=== PATIENT | female | born 1980 | race Hispanic/Latino ===

== ENCOUNTER 2021-11-01 22:56 | Inpatient (IN) | payer MEDICAID, SELFPAY ==
[2021-11-01] MEDS ORDERED: Morphine 4 MG/ML VIAL ONE (23:47)
[2021-11-01] MEDS ORDERED: Ondansetron PF 4 MG/2 ML Vial ONE (23:47)
[2021-11-01 23:54] LABS: #Basophils 0.1 thou/uL (0.0-0.2); #Eosinphils 0.2 thou/uL (0.0-0.7); %Basophils 0.8 % (0.0-1.0); %Eosinophils 1.2 % (0.0-10.0); %Lymphocytes 14.9 % (21.0-51.0); %Monocytes 7.8 % (0.0-10.0); %Neutrophils 75.3 % (42.0-75.0); Hemoglobin 14.1 g/dL (12.0-16.0); Mean Corpuscular HGB CONC 32.3 g/dL (32.0-36.0); Mean Corpuscular Hemoglobin 29.1 pg (27.0-31.0); Mean Corpuscular Volume 89.9 fL (78.0-98.0); Mean Platelet Volume 7.4 fL (7.4-10.4); Platelet Count 337 thou/uL (130-400); RBC Distribution Width 13.3 % (11.5-14.5); Red Blood Cell (RBC) Count 4.86 mill/uL (4.20-5.40); White Blood Cell (WBC) Count 13.2 thou/uL (4.8-10.8)
[2021-11-02 00:01] LABS: Pregnancy Test - Urine (BHCG) Negative (Negative); Pregu Control Background? CLEAR/WHITE (CLR/WHITE); Pregu Control Bar Appear? YES (CONTROL BAR); Specific Gravity 1.016 (1.002-1.036)
[2021-11-02 00:11] LABS: Bilirubin 1+ (Negative); Blood, Urine Negative (Negative); Clarity Turbid (Clear); Glucose, Urine (Dipstick) Normal (Negative); Ketone, Urine Negative (Negative); Leukocyte 500 Leu/uL (Negative); Nitrite Negative (Negative); Protein, Urine (Dipstick) 10 mg/dL (Neg-Trace); RBC/HPF 0-3 HPF (0-3); Specific Gravity, Urine 1.017 (1.002-1.036); WBC/HPF 21-50 HPF (0-3); pH, Urine 5.5 (5.0-9.0)
[2021-11-02 00:12] LABS: Bacteria/HPF 1+ HPF (None Seen)
[2021-11-02 00:28] LABS: BHCG - Serum Negative (NEGATIVE); Pregs Control Background? CLEAR/WHITE (CLR/WHITE); Pregs Control Bar Appear? YES (CONTROL BAR)
[2021-11-02] MEDS ORDERED: cefTRIAXone\\ROCEPHIN 1 GM VIAL ONE (00:38)
[2021-11-02 00:40] LABS: ALT (SGPT) 1390 U/L (8-55); AST (SGOT) 321 U/L (5-34); Alkaline Phosphatase 224 U/L (40-110); Anion Gap 14 mmol/L (10-20); BUN (Urea Nitrogen) 8 mg/dL (7.0-18.7); Bilirubin, Total 3.4 mg/dL (0.2-1.2); Calc. Creatinine Clearance 0 mL/min (70-130); Calcium 9.9 mg/dL (7.8-10.44); Carbon Dioxide 26 mmol/L (22-29); Chloride 103 mmol/L (98-107); Globulin 3.7 g/dL (2.4-3.5); Glucose 181 mg/dL (70-105); Potassium 3.5 mmol/L (3.5-5.1); Protein, Total 7.7 g/dL (6.0-8.3); Sodium 139 mmol/L (136-145)
[2021-11-02 01:07] LABS: Lipase 14381 U/L (8-78)
[2021-11-02] MEDS ORDERED: Morphine 4 MG/ML VIAL ONE (01:17)
[2021-11-02] MEDS ORDERED: Ondansetron PF 4 MG/2 ML Vial ONE (01:18)
[2021-11-02] MEDS ORDERED: Promethazine HCl 25 MG/ML VIAL ONE (02:04)
[2021-11-02 02:14] LABS: Cardiac Risk 3.8 (Less than 4.5)
[2021-11-02 03:51] VITALS: BMI 36.3
[2021-11-02] MEDS ORDERED: Morphine 4 MG/ML VIAL SLOW IVP PRN ×2 (03:56→06:30)
[2021-11-02] MEDS ORDERED: Ondansetron PF 4 MG/2 ML Vial IVP PRN ×2 (04:00→06:26)
[2021-11-02] MEDS ORDERED: Ondansetron ODT 4 MG TAB SL PRN (04:00)
[2021-11-02] MEDS: Sodium Chloride 0.9% 1,000 ML IV SCH ×4 (04:22→20:50)
[2021-11-02 05:43] LABS: SARS-CoV-2 NAA Rapid Test Not Detected (NotDetected)
[2021-11-02] MEDS ORDERED: Acetaminophen 325 MG TAB PO PRN (06:26)
[2021-11-02] MEDS ORDERED: Fentanyl 100 MCG/2 ML VIAL SLOW IVP ONE (06:46)
[2021-11-02] MEDS ORDERED: Acetaminophen 500 MG TAB PO PRN (06:53)
[2021-11-02] MEDS ORDERED: Piperacillin/Tazobactam 3.375 GM in Sodium Chloride 0.9% 100 ML IVPB SCH ×2 (09:00→10:00)
[2021-11-02] MEDS ORDERED: FLU VACC QS2021-22(6MOS UP)/PF 60 MCG/0.5 ML SYRINGE IM ONE (09:00)
[2021-11-02] MEDS: Promethazine HCl 25 MG in Sodium Chloride 0.9% 50 ML IVPB PRN (09:27)
[2021-11-02 10:46] LABS: Iron 49 ug/dL (50-170); Iron Binding Capacity, Total 335 mcg/dL (265-497)
[2021-11-02 11:05] LABS: Ferritin 536.45 ng/mL (10-291); Thyroid Stimulating Hormone 0.2636 uIU/mL (0.35-4.94)
[2021-11-02 11:19] LABS: HBCM Index 0.07 S/CO (0-0.79); HBSAg Index 0.21 S/CO (0-0.99); Hep A IgM AB Non-Reactive (NonReactive); Hep B Surf Ag Non-Reactive S/CO (NonReactive); Hep C IgG Ab Non-Reactive (NonReactive); Hep C Index 0.13 S/CO (0-0.79); Hepatitis B Core IgM Abs Non-Reactive (NonReactive)
[2021-11-02] MEDS ORDERED: Fentanyl 100 MCG/2 ML VIAL ONE (14:01)
[2021-11-02] MEDS ORDERED: Indomethacin 50 MG SUPP ONE (14:15)
[2021-11-02] MEDS ORDERED: Iothalamate Meglumine 60% 50 ML VIAL FS ONE (14:17)
[2021-11-02] MEDS ORDERED: PHENYLEPHRINE-NS 100 MCG/ML 10 ML SYRINGE ONE (14:18)
[2021-11-02] MEDS ORDERED: Phenylephrine 10 MG/ML VIAL ONE (14:33)
[2021-11-02] MEDS ORDERED: Dexamethasone 20 MG/5 ML VIAL ONE (14:33)
[2021-11-02] MEDS ORDERED: PROPOFOL 200 MG/20 ML VIAL ONE (14:33)
[2021-11-02] MEDS ORDERED: Succinylcholine 200 MG/10 ml SYRINGE FS ONE (14:33)
[2021-11-02] MEDS ORDERED: Lidocaine 1% PF 5 ML VIAL ONE (14:33)
[2021-11-02] MEDS ORDERED: ePHEDrine 50 MG/ML VIAL ONE (14:33)
[2021-11-02] MEDS: Piperacillin/Tazobactam 3.375 GM in Sodium Chloride 0.9% 100 ML IVPB SCH (18:29)
[2021-11-02] MEDS: Morphine 4 MG/ML VIAL SLOW IVP PRN (20:54)
[2021-11-03] MEDS ORDERED: cefTRIAXone\\ROCEPHIN 1 GM in Sodium Chloride 0.9% 100 ML IVPB SCH
[2021-11-03] MEDS: Sodium Chloride 0.9% 1,000 ML IV SCH ×4 (01:10→14:01)
[2021-11-03] MEDS: Piperacillin/Tazobactam 3.375 GM in Sodium Chloride 0.9% 100 ML IVPB SCH ×3 (02:08→17:00)
[2021-11-03] MEDS: Morphine 4 MG/ML VIAL SLOW IVP PRN ×4 (02:12→17:26)
[2021-11-03 07:01] LABS: #Lymphocytes 1.2 thou/uL (1.20-3.40); #Neutrophils 15.7 thou/uL (1.40-6.50); %Basophils 0.2 % (0.0-1.0); %Eosinophils 0.1 % (0.0-10.0); %Lymphocytes 6.5 % (21.0-51.0); %Monocytes 5.7 % (0.0-10.0); %Neutrophils 87.5 % (42.0-75.0); Hemoglobin 12.9 g/dL (12.0-16.0); Mean Corpuscular HGB CONC 32.7 g/dL (32.0-36.0); Mean Corpuscular Hemoglobin 29.2 pg (27.0-31.0); Mean Corpuscular Volume 89.4 fL (78.0-98.0); Mean Platelet Volume 7.1 fL (7.4-10.4); Platelet Count 289 thou/uL (130-400); RBC Distribution Width 13.7 % (11.5-14.5); Red Blood Cell (RBC) Count 4.43 mill/uL (4.20-5.40)
[2021-11-03 07:26] LABS: ALT (SGPT) 1106 U/L (8-55); AST (SGOT) 338 U/L (5-34); Albumin 3.6 g/dL (3.5-5.0); Alkaline Phosphatase 188 U/L (40-110); Anion Gap 13 mmol/L (10-20); BUN (Urea Nitrogen) 10 mg/dL (7.0-18.7); Calc. Creatinine Clearance 132 mL/min (70-130); Calcium 8.4 mg/dL (7.8-10.44); Carbon Dioxide 26 mmol/L (22-29); Chloride 105 mmol/L (98-107); Globulin 3.1 g/dL (2.4-3.5); Glucose 153 mg/dL (70-105); Potassium 3.6 mmol/L (3.5-5.1); Protein, Total 6.7 g/dL (6.0-8.3); Sodium 140 mmol/L (136-145)
[2021-11-03] MEDS ORDERED: Enoxaparin Sodium 40 MG/0.4 ML SYRINGE SC SCH (09:00)
[2021-11-03] MEDS: Promethazine HCl 25 MG in Sodium Chloride 0.9% 50 ML IVPB PRN ×2 (09:44→16:54)
[2021-11-03 15:51] LABS: ANA Symphony (Qualitative) Negative (Negative); ANA Symphony (Quantitative) 0.4 Ratio (< 0.7 Negative); dsDNA IgG Antibody 0.6 IU/mL (<10 Negative)
[2021-11-03] MEDS ORDERED: Morphine 4 MG/ML VIAL SLOW IVP SCH (19:30)
[2021-11-03 19:52] VITALS: BP 127/82; TEMP 99.1
== END 2021-11-03 20:05 | disposition short-term general hospital (02) | DRG 439 ==
LOC: ERS 22:56 → T4-A 11-02 02:23
PROVIDERS: ADMIT Internal Medicine; ATTEND Internal Medicine
PROC: 0FJB8ZZ Inspection of Hepatobiliary Duct, Via Natural or Artificial Opening Endoscopic (ICD-10-PCS; principal; 2021-11-02)
DX: K85.90 Acute pancreatitis without necrosis or infection, unspecified (principal); Z20.822 Contact with and (suspected) exposure to COVID-19; N39.0 Urinary tract infection, site not specified; K80.51 Calculus of bile duct without cholangitis or cholecystitis with obstruction; E80.6 Other disorders of bilirubin metabolism; Z23 Encounter for immunization; Z90.49 Acquired absence of other specified parts of digestive tract; Z87.442 Personal history of urinary calculi
CPT/HCPCS: 36415; 74177; 74330; 76000; 80053; 80061; 80074; 81003; 81015; 81025; 82390; 82728; 83540; 83550; 83690; 84443; 84484; 84703; 85025; 86038; 86225; 87086; 90471; 90686; 93005; 96365; 96366; 96367; 96375; 96376; C1769; G0008; J0696; J1100; J1650; J2270; J2370; J2405; J2543; J2550; J2704; J3010; J3490; J7050; Q9961-U8; U0002